=== PATIENT | male | born 1975 | race Caucasian/White ===

== ENCOUNTER 2019-09-30 17:40 | Emergency (ER) | payer SELFPAY ==
[~2019-09-30] VITALS: Ht 172.7 cm; Wt 65.8 kg
[2019-09-30 17:45] VITALS: BP 113/71; Ht 172.7 cm; Wt 65.8 kg
== END 2019-09-30 18:40 | disposition home or self-care (01) ==
LOC: ED 17:40
DX: M25.551 Pain in right hip (principal); X58.XXXA Exposure to other specified factors, initial encounter; Y93.89 Activity, other specified; Y92.89 Other specified places as the place of occurrence of the external cause; Y99.8 Other external cause status
CPT/HCPCS: J1885